=== PATIENT | male | born 1960 | race Caucasian/White ===

== ENCOUNTER 2017-05-07 22:13 | Emergency (ER) | payer MEDICAID ==
[2017-05-07 22:37] VITALS: BP 132/90
[2017-05-07] MEDS ORDERED: HYDROmorphone 1 MG/ML Syringe IM ONE (23:09)
[2017-05-07] MEDS ORDERED: Bacitracin Oint 1 GM U/D Packet TOP ONE (23:10)
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
== END 2017-05-07 23:50 | disposition home or self-care (01) ==
LOC: JP.ED 22:13
DX: T23.251A Burn of second degree of right palm, initial encounter (principal); T23.271A Burn of second degree of right wrist, initial encounter; F17.210 Nicotine dependence, cigarettes, uncomplicated; Z98.890 Other specified postprocedural states
CPT/HCPCS: 96372; 99283; J1170